=== PATIENT | male | born 1945 | race African-American/Black ===

== ENCOUNTER 2016-12-19 20:48 | Inpatient (IN) | payer OTHER ==
[~2016-12-19] VITALS: Ht 185.4 cm; Wt 83.2 kg
--- NOTE | ~2016-12-19 | PR ---
[place], [place] PROGRESS NOTE NAME: VERONICA GUAJARDO SR [facility] #: [id number] UNIT #: [id number] ROOM: 519 DOCTOR: RALPH WOODRUFF MD BIRTHDATE: [birth year] DOS: 12/21/2016 CARDIOLOGY PROGRESS NOTE SUBJECTIVE: The patient was seen in the [facility] at his bedside today, 12/21/2016. He is a 71-year-old man who presented to the hospital with chest pain and hypertension. He does have a long history of alcohol abuse, but no previous history of coronary disease. He ruled out for an acute myocardial infarction, but his perfusion images did show an area of inferior ischemia. I discussed this finding with the patient, his son and his daughter and the consensus was that we should treat this medically for the time being. His prognosis should be fairly good since this is most likely single vessel disease with preserved left ventricular systolic function. We started him on a beta norma, aspirin, and a statin. This morning, he states that his chest feels good. He denies palpitations and denies chest pain. He does seem anxious and I am concerned that he may be close to alcohol withdrawal. He does have medications ordered for this eventuality. In the long run; however, he would be better off if he could be withdrawn completely from alcohol and remained sober indefinitely. The patient also does smoke and he was advised to stop smoking as well. PHYSICAL EXAMINATION: VITAL SIGNS: Today, his pulse is 60 and regular, blood pressure 154/90. He is afebrile. NECK: Supple. He has no jugular distention. Carotids are full. LUNGS: Respirations are unlabored. Chest is clear to auscultation and percussion. He has no presacral edema. HEART: Has a regular rhythm. He has a fourth heart sound, but no third heart sound or murmur. The PMI is not displaced. ABDOMEN: Soft and normally active. EXTREMITIES: Showed no edema. Peripheral pulses are palpable in the feet. IMPRESSION: 1. Coronary artery disease. Stress test done on 12/21/2016 demonstrated single vessel disease involving the posterior wall. Ejection fraction is preserved. 2. Hypertension. 3. Alcohol abuse. 4. Cigarette abuse. PLAN: No other changes in cardiac management are planned at this time. He could be discharged from our standpoint. I would like to see him back in the office in about 3 or 4 weeks. I thank the hospitalist physicians and Dr. Cm for asking our advice regarding his care. [place], [place] PROGRESS NOTE NAME: BENNETT SUAREZVERONICA Caitie UNIT #: [id number] ROOM: [facility] DOCTOR: RALPH WOODRUFF MD BIRTHDATE: [birth year] RALPH WOODRUFF MD CM:PNTRANS [id number] RALPH WOODRUFF MD 12/22/16 0146 interface
--- NOTE | ~2016-12-19 | EKG ---
[place], [place] ELECTROCARDIOGRAM REPORT NAME: VERONICA GUAJARDO SR UNIT #: [id number] ROOM: [facility] DOCTOR: RALPH WOODRUFF MD BIRTHDATE: [birth year] DOS: 12/19/2016 TIME: 2126 FINDINGS: Sinus bradycardia with rate of 57. Leftward axis. Left ventricular hypertrophy by voltage criteria. Early R-wave progression. Abnormal electrocardiogram. RALPH WOODRUFF MD CM:EKGRPT:ELECTROCARDIOGRAM REPORT [id number] RALPH WOODRUFF MD
--- NOTE | ~2016-12-19 | WRIGHTHP ---
[place], [place] PATIENT HISTORY AND PHYSICAL EXAM NAME: [facility] [id number] UNIT #: [id number] ROOM: [facility] DOCTOR: ANGELA LENZ DO BIRTHDATE: [birth year] DOS: 12/20/2016 PRIMARY CARE PHYSICIAN: Alfred Cm MD The patient was seen and evaluated with the resident on 12/20/2016. Please see the resident's note for further details. ASSESSMENT: 1. Hypertension emergency. 2. Chest pain, rule out myocardial infarction. 3. Vitamin B12 deficiency. 4. Normocytic anemia. 5. Hyperlipidemia. 6. Tobacco abuse in the form of chewing tobacco and occasional cigarettes. 7. Alcohol dependence with a reported consumption of approximately 12-14 beers daily. 8. History of transient ischemic attacks in 09/2006 and 11/2008. 9. Dementia. 10. History of prostate cancer. 11. Gastroesophageal reflux disease. 12. History of known abdominal aortic aneurysm measuring 2.8 cm in 04/2014. 13. Negative cardiac stress test in 07/2013. 14. Last echocardiogram in 07/2013 measured a normal ejection fraction. PLAN: Continue to monitor cardiac enzymes. Continue to monitor the blood pressure closely. Cardiology has been consulted. A stress test has been ordered for today. B12 injections will be started today. ANGELA LENZ DO CM:HISPHYS:PATIENT HISTORY AND PHYSICAL EXAMINATION [id number] ANGELA LENZ DO 12/20/16 1000 interface
--- NOTE | ~2016-12-19 | ST ---
[place], [place] EXERCISE STRESS TEST REPORT [id number] UNIT #: [id number] ROOM: 519 DOCTOR: RALPH WOODRUFF MD BIRTHDATE: [birth year] DOS: 12/20/2016 EXERCISE STRESS NUCLEAR STUDY INDICATIONS: Hypertension and atypical chest pain. PROCEDURE: The patient walked on a full Lg protocol stress test for 4 minutes 30 seconds and stopped for leg fatigue. He did not reproduce his presenting chest pain. He achieved a maximum heart rate of 148 which represented 98% of his maximum predicted heart rate at a workload of 7 mets. His resting heart rate of 51 tab to 148. The resting blood pressure of 110/72 tab to 162/78. The resting electrocardiogram was unremarkable. He did not have any diagnostic ST or T-wave changes with exercise. One minute prior to completion of the exercise protocol, he was given radionuclide intravenously. IMPRESSION: 1. Adequate exercise capacity without chest pain or diagnostic electrocardiographic changes. 2. Radionuclide injected. Please see the separately dictated imaging report for further details of the patient's stress test results. RALPH WOODRUFF MD CM:STRESS:EXERCISE STRESS TEST REPORT [id number] RALPH WOODRUFF MD
[~2016-12-19 20:48] MED LIST: AMLODIPINE BESYL5 MG; AMLODIPINE BESYL5 MG PO; ANTI-HYPERTENSIVE; ATIVAN0.5 MG PO; ATIVAN1 MG PO; B12,B-12,B 12500 MC1 PO; BACTRIM DS 8001 TA1 PO; CILOXAN 5 ML5 ML IA; CILOXAN 5 ML5 ML OT; DAYPRO600 M1 PO; EXELON4.6 MG/24 T; IBU800 M1 PO; IBUPROFEN800 MG; KEFLEX500 MG PO; LEVAQUIN750 M1 PO; LISINOPRIL/HCTZ1 TA3 PO; LISINOPRIL20 MG PO; MELOXICAM15 MG; METAMUCIL1 PDR; MOTRIN800 MG PO; OXYCODONE/APAP1 TA5 PO; PREVACID SOLUTA30 MG PO; PRILOSEC20 MG PO; PROTONIX40 MG PO; SIMVASTATIN40 MG; ULTRAM50 MG PO; VICODIN 500 MG-1 TAB PO; VITAMIN B150 MG; ZESTRIL,PRINIVIL5 MG PO
[2016-12-19 21:01] VITALS: BP 190/97
[2016-12-19] MEDS ORDERED: LISINOPRIL AND1 TAB PO (21:01)
[2016-12-19 21:21] VITALS: BP 182/92
[2016-12-19 21:29] LABS: BASO % 0.7 % (0.0-1.0); EOS # 0.2 10*3/uL (0.0-0.4); EOS % 2.6 % (1.0-4.0); HEMATOCRIT 39.4 % (42.0-52.0); HEMOGLOBIN 13.6 g/dl (14.0-18.0); LYMPH # 2.4 10*3/uL (1.3-4.4); LYMPH % 41.7 % (27.0-41.0); MEAN CELL VOLUME 89.1 fl (80.0-94.0); MEAN CORPUSCULAR HGB 30.8 pg (27.0-31.0); MEAN CORPUSCULAR HGB CONC 34.5 g/dl (33.0-37.0); MEAN PLATELET VOLUME 8.5 fl (9.6-12.3); MONO # 0.6 10*3/uL (0.1-1.0); MONO % 10.6 % (3.0-9.0); NEUT # 2.5 10*3/uL (2.3-7.9); NEUT % 44.1 % (47.0-73.0); PLATELET COUNT AUTOMATED 213 10*3/uL (130-400); RED BLOOD COUNT 4.42 10*6/uL (4.50-5.90); RED CELL DISTRI WIDTH 14.7 % (0-14.5); WHITE BLOOD COUNT 5.8 10*3/uL (4.8-10.8)
[2016-12-19 21:48] LABS: BUN 13 mg/dl (7-24); CARBON DIOXIDE 26 mmol/L (21-32); CHLORIDE 106 mmol/L (98-107); EST GLOM FILT AFRICAN AMERICAN > 60 ml/min; GLUCOSE 78 mg/dL (65-99); POTASSIUM 3.8 mmol/L (3.5-5.1); SODIUM 138 mmol/L (136-145)
[2016-12-19 21:50] LABS: TROPONIN I < 0.015 ng/ml (<0.045)
[2016-12-19 22:00] VITALS: BP 154/86
[2016-12-19 22:04] LABS: BILIRUBIN NEGATIVE (NEGATIVE); BLOOD NEGATIVE (NEGATIVE); CLARITY CLEAR (CLEAR); COLOR YELLOW (YELLOW); GLUCOSE NEGATIVE (NEGATIVE); KETONE NEGATIVE (NEGATIVE); LEUKO ESTERASE NEGATIVE (NEGATIVE); NITRITE NEGATIVE (NEGATIVE); PROTEIN NEGATIVE (NEGATIVE); UROBILINOGEN 0.2 E.U./dl (0.2-1.0)
[2016-12-19 22:10] LABS: URINE REFLEX COMMENT NO (NO); WBC 0-2 wbc/hpf (0-5)
[2016-12-19 23:00] VITALS: BP 124/72
[2016-12-19 23:36] VITALS: BP 124/72
[2016-12-20] VITALS (7 sets, daily range): BP systolic 110–136; BP diastolic 68–78
[2016-12-20 06:30] LABS: BASO % 0.8 % (0.0-1.0); EOS # 0.1 10*3/uL (0.0-0.4); EOS % 3.3 % (1.0-4.0); HEMATOCRIT 37.3 % (42.0-52.0); HEMOGLOBIN 12.9 g/dl (14.0-18.0); LYMPH # 1.4 10*3/uL (1.3-4.4); LYMPH % 38.9 % (27.0-41.0); MEAN CELL VOLUME 89.4 fl (80.0-94.0); MEAN CORPUSCULAR HGB 30.9 pg (27.0-31.0); MEAN CORPUSCULAR HGB CONC 34.6 g/dl (33.0-37.0); MEAN PLATELET VOLUME 8.4 fl (9.6-12.3); MONO # 0.4 10*3/uL (0.1-1.0); NEUT # 1.7 10*3/uL (2.3-7.9); NEUT % 44.7 % (47.0-73.0); PLATELET COUNT AUTOMATED 192 10*3/uL (130-400); RED BLOOD COUNT 4.17 10*6/uL (4.50-5.90); RED CELL DISTRI WIDTH 14.7 % (0-14.5); WHITE BLOOD COUNT 3.7 10*3/uL (4.8-10.8)
[2016-12-20 06:40] LABS: CKMB 3.9 ng/ml (0.5-3.6); CPK 278 U/L (39-308)
[2016-12-20 06:41] LABS: TROPONIN I < 0.015 ng/ml (<0.045)
[2016-12-20 06:59] LABS: HEMOGLOBIN A1c 5.3 % (4.8-5.6)
[2016-12-20 07:02] LABS: PROTHROMBIN TIME 10.2 SECONDS (9.0-12.4)
[2016-12-20 07:08] LABS: ALBUMIN 3.3 gm/dl (3.1-4.5); BILIRUBIN, TOTAL 0.5 mg/dl (0.2-1.0); BUN 14 mg/dl (7-24); CARBON DIOXIDE 28 mmol/L (21-32); CHLORIDE 109 mmol/L (98-107); CHOLESTEROL 218 mg/dL (<200); EST GLOM FILT AFRICAN AMERICAN > 60 ml/min; GLUCOSE 70 mg/dL (65-99); MAGNESIUM 2.1 mg/dL (1.5-2.1); POTASSIUM 3.6 mmol/L (3.5-5.1); SGOT/AST 8 IU/L (3-35); SGPT/ALT 31 U/L (12-78); SODIUM 130 mmol/L (136-145); TOTAL PROTEIN 6.4 gm/dL (6.4-8.2)
[2016-12-20 07:15] LABS: ALKALINE PHOSPHATASE 63 U/L (45-117); FREE T4 0.82 ng/dl (0.76-1.46)
[2016-12-20 08:05] LABS: HDL CHOLESTEROL 173 mg/dl (40-60); LDL CHOLESTEROL 37 mg/dL (9-159); TRIGLYCERIDES 40 mg/dl (<150); VLDL CHOLESTEROL 8 mg/dL (6-40)
[2016-12-20 08:39] LABS: FOLIC ACID 18.01 ng/mL (>5.38); VITAMIN D, 25-HYDROXY 7.2 ng/mL (30-100)
[2016-12-20 13:58] LABS: CPK 296 U/L (39-308)
[2016-12-20 14:04] LABS: TROPONIN I < 0.015 ng/ml (<0.045)
[2016-12-20 18:29] LABS: CPK 311 U/L (39-308)
[2016-12-20 18:30] LABS: CKMB 4.1 ng/ml (0.5-3.6)
[2016-12-20 18:31] LABS: TROPONIN I < 0.015 ng/ml (<0.045)
[2016-12-21 00:20] VITALS: BP 129/76
[2016-12-21 07:14] LABS: BASO % 0.9 % (0.0-1.0); EOS # 0.1 10*3/uL (0.0-0.4); EOS % 2.2 % (1.0-4.0); HEMATOCRIT 40.6 % (42.0-52.0); HEMOGLOBIN 13.9 g/dl (14.0-18.0); LYMPH # 1.9 10*3/uL (1.3-4.4); LYMPH % 41.6 % (27.0-41.0); MEAN CELL VOLUME 89.2 fl (80.0-94.0); MEAN CORPUSCULAR HGB 30.5 pg (27.0-31.0); MEAN CORPUSCULAR HGB CONC 34.2 g/dl (33.0-37.0); MONO # 0.6 10*3/uL (0.1-1.0); MONO % 12.4 % (3.0-9.0); NEUT % 42.7 % (47.0-73.0); PLATELET COUNT AUTOMATED 217 10*3/uL (130-400); RED BLOOD COUNT 4.55 10*6/uL (4.50-5.90); RED CELL DISTRI WIDTH 14.7 % (0-14.5); WHITE BLOOD COUNT 4.6 10*3/uL (4.8-10.8)
[2016-12-21 07:32] LABS: CHLORIDE 102 mmol/L (98-107); GLUCOSE 90 mg/dL (65-99); POTASSIUM 3.9 mmol/L (3.5-5.1); SODIUM 141 mmol/L (136-145)
[2016-12-21 07:38] LABS: BUN 19 mg/dl (7-24); CARBON DIOXIDE 29 mmol/L (21-32); EST GLOM FILT AFRICAN AMERICAN > 60 ml/min
[2016-12-21 08:08] VITALS: BP 154/90
[2016-12-21] MEDS ORDERED: METOPROLOL SUCC25 M2 PO (11:08)
[2016-12-21] MEDS ORDERED: ASPIRIN ADULT L81 M2 PO (11:08)
[2016-12-21] MEDS ORDERED: HYDR12.5C PO (11:08)
[2016-12-21] MEDS ORDERED: B-12500 MC1 PO (11:08)
[2016-12-21] MEDS ORDERED: ATORVASTATIN CA80 M1 PO (11:08)
[2016-12-21] MEDS ORDERED: VITAMIN D50000 I3 PO (11:08)
[2016-12-21] MEDS ORDERED: VITAMIN B-11 TAB PO (11:08)
[2016-12-21 12:00] VITALS: BP 156/80
== END 2016-12-21 13:14 | disposition home or self-care (01) | DRG 305 ==
LOC: ED 20:48 → EDHOLD 22:29 → 5E 22:29
PROVIDERS: Family Medicine; Hospitalist; Internal Medicine; Physician Assistant
DX: I16.1 Hypertensive emergency (principal); F03.90 Unspecified dementia, unspecified severity, without behavioral disturbance, psychotic disturbance, mood disturbance, and anxiety; I25.10 Atherosclerotic heart disease of native coronary artery without angina pectoris; E53.8 Deficiency of other specified B group vitamins; D64.9 Anemia, unspecified; E78.5 Hyperlipidemia, unspecified; F17.210 Nicotine dependence, cigarettes, uncomplicated; F10.20 Alcohol dependence, uncomplicated; Z86.73 Personal history of transient ischemic attack (TIA), and cerebral infarction without residual deficits; Z85.46 Personal history of malignant neoplasm of prostate; K21.9 Gastro-esophageal reflux disease without esophagitis; R07.89 Other chest pain

== ENCOUNTER 2017-10-13 23:02 | Emergency (ER) | payer OTHER ==
[~2017-10-13] VITALS: Ht 177.8 cm; Wt 77.1 kg
[~2017-10-13 23:02] MED LIST changes: +ASPIRIN ADULT L81 M2 PO; +ATORVASTATIN CA80 M1 PO; +B-12500 MC1 PO; +HYDR12.5C PO; +LISINOPRIL AND1 TAB PO; +METOPROLOL SUCC25 M2 PO; +VITAMIN B-11 TAB PO; +VITAMIN D50000 I3 PO
[2017-10-14] MEDS ORDERED: ZITHROMAX250 MG PO (00:47)
[2017-10-14] MEDS ORDERED: ROBITUSSIN DM 101 OZ PO (00:47)
== END 2017-10-14 01:15 | disposition home or self-care (01) ==
LOC: ED 23:02
DX: J20.9 Acute bronchitis, unspecified (principal); I10 Essential (primary) hypertension; F17.200 Nicotine dependence, unspecified, uncomplicated; F10.10 Alcohol abuse, uncomplicated; F03.90 Unspecified dementia, unspecified severity, without behavioral disturbance, psychotic disturbance, mood disturbance, and anxiety; Z79.899 Other long term (current) drug therapy; Z85.46 Personal history of malignant neoplasm of prostate; Z90.49 Acquired absence of other specified parts of digestive tract; Z86.73 Personal history of transient ischemic attack (TIA), and cerebral infarction without residual deficits

== ENCOUNTER 2019-04-11 16:53 | Emergency (ER) | payer OTHER ==
[~2019-04-11] VITALS: Ht 175.2 cm; Wt 97.5 kg
[~2019-04-11 16:53] MED LIST changes: +ROBITUSSIN DM 101 OZ PO; +ZITHROMAX250 MG PO
[2019-04-11 17:41] LABS: BASO % 0.5 % (0.0-1.0); EOS # 0.1 10*3/uL (0.0-0.4); EOS % 3.2 % (1.0-4.0); HEMATOCRIT 36.3 % (42.0-52.0); HEMOGLOBIN 12.7 g/dl (14.0-18.0); LYMPH # 1.3 10*3/uL (1.3-4.4); LYMPH % 30.8 % (27.0-41.0); MEAN CELL VOLUME 87.7 fl (80.0-94.0); MEAN CORPUSCULAR HGB 30.7 pg (27.0-31.0); MEAN PLATELET VOLUME 8.8 fl (9.6-12.3); MONO # 0.4 10*3/uL (0.1-1.0); MONO % 9.9 % (3.0-9.0); NEUT # 2.3 10*3/uL (2.3-7.9); NEUT % 55.4 % (47.0-73.0); PLATELET COUNT AUTOMATED 214 10*3/uL (130-400); RED BLOOD COUNT 4.14 10*6/uL (4.50-5.90); RED CELL DISTRI WIDTH 14.2 % (0-14.5); WHITE BLOOD COUNT 4.1 10*3/uL (4.8-10.8)
[2019-04-11 17:55] LABS: ALBUMIN 3.7 gm/dl (3.1-4.5); ALKALINE PHOSPHATASE 94 U/L (45-117); BUN 20 mg/dl (7-24); CHLORIDE 95 mmol/L (98-107); CREATININE 1.03 mg/dL (0.70-1.30); LIPASE 69 U/L (73-393); POTASSIUM 3.2 mmol/L (3.5-5.1); SGOT/AST 22 IU/L (3-35); SGPT/ALT 32 U/L (12-78); SODIUM 130 mmol/L (136-145); TOTAL PROTEIN 7.3 gm/dL (6.4-8.2)
== END 2019-04-11 19:35 | disposition home or self-care (01) ==
LOC: ED 16:53
PROVIDERS: Nurse Practitioner Family
DX: A08.4 Viral intestinal infection, unspecified (principal); I10 Essential (primary) hypertension; G89.29 Other chronic pain; F17.200 Nicotine dependence, unspecified, uncomplicated; Z79.2 Long term (current) use of antibiotics; Z79.82 Long term (current) use of aspirin; Z79.899 Other long term (current) drug therapy; Z90.49 Acquired absence of other specified parts of digestive tract

== ENCOUNTER → 2019-10-28 | Outpatient (CLI) | payer OTHER ==
[2019-10-28 08:17] LABS: BASO % 0.7 % (0.0-1.0); EOS # 0.2 10*3/uL (0.0-0.4); EOS % 4.7 % (1.0-4.0); HEMATOCRIT 40.2 % (42.0-52.0); HEMOGLOBIN 13.5 g/dl (14.0-18.0); LYMPH # 1.9 10*3/uL (1.3-4.4); LYMPH % 42.6 % (27.0-41.0); MEAN CELL VOLUME 91.6 fl (80.0-94.0); MEAN CORPUSCULAR HGB 30.8 pg (27.0-31.0); MEAN CORPUSCULAR HGB CONC 33.6 g/dl (33.0-37.0); MONO # 0.5 10*3/uL (0.1-1.0); MONO % 10.4 % (3.0-9.0); NEUT # 1.9 10*3/uL (2.3-7.9); NEUT % 41.4 % (47.0-73.0); PLATELET COUNT AUTOMATED 225 10*3/uL (130-400); RED BLOOD COUNT 4.39 10*6/uL (4.50-5.90); RED CELL DISTRI WIDTH 14.2 % (0-14.5); WHITE BLOOD COUNT 4.5 10*3/uL (4.8-10.8)
[2019-10-28 08:47] LABS: ALBUMIN 3.7 gm/dl (3.1-4.5); ALKALINE PHOSPHATASE 116 U/L (45-117); BUN 16 mg/dl (7-24); CHLORIDE 105 mmol/L (98-107); CHOLESTEROL 142 mg/dL (<200); CREATININE 1.04 mg/dL (0.70-1.30); HDL CHOLESTEROL 82 mg/dl (40-60); LDL CHOLESTEROL 51 mg/dL (9-159); POTASSIUM 3.5 mmol/L (3.5-5.1); SGOT/AST 22 IU/L (3-35); SGPT/ALT 38 U/L (12-78); SODIUM 140 mmol/L (136-145); TOTAL PROTEIN 7.6 gm/dL (6.4-8.2); TRIGLYCERIDES 45 mg/dl (<150); VLDL CHOLESTEROL 9 mg/dL (6-40)
== END | disposition home or self-care (01) ==
LOC: LAB 07:46
PROVIDERS: Family Medicine
DX: I10 Essential (primary) hypertension (principal); E78.2 Mixed hyperlipidemia; R73.03 Prediabetes; Z79.899 Other long term (current) drug therapy

== ENCOUNTER 2019-12-03 21:37 | Emergency (ER) | payer OTHER ==
[2019-12-03 22:42] LABS: BASO % 0.5 % (0.0-1.0); EOS # 0.1 10*3/uL (0.0-0.4); EOS % 0.9 % (1.0-4.0); HEMATOCRIT 36.6 % (42.0-52.0); HEMOGLOBIN 12.6 g/dl (14.0-18.0); LYMPH # 1.4 10*3/uL (1.3-4.4); LYMPH % 17.8 % (27.0-41.0); MEAN CELL VOLUME 89.1 fl (80.0-94.0); MEAN CORPUSCULAR HGB 30.7 pg (27.0-31.0); MEAN CORPUSCULAR HGB CONC 34.4 g/dl (33.0-37.0); MEAN PLATELET VOLUME 8.8 fl (9.6-12.3); MONO # 0.8 10*3/uL (0.1-1.0); MONO % 10.3 % (3.0-9.0); NEUT # 5.7 10*3/uL (2.3-7.9); NEUT % 70.3 % (47.0-73.0); PLATELET COUNT AUTOMATED 210 10*3/uL (130-400); RED BLOOD COUNT 4.11 10*6/uL (4.50-5.90); RED CELL DISTRI WIDTH 14.3 % (0-14.5); WHITE BLOOD COUNT 8.1 10*3/uL (4.8-10.8)
[2019-12-03 22:57] LABS: ALBUMIN 3.5 gm/dl (3.1-4.5); ALKALINE PHOSPHATASE 82 U/L (45-117); BUN 12 mg/dl (7-24); CHLORIDE 105 mmol/L (98-107); CREATININE 0.98 mg/dL (0.70-1.30); POTASSIUM 3.4 mmol/L (3.5-5.1); SGOT/AST 20 IU/L (3-35); SGPT/ALT 21 U/L (12-78); SODIUM 135 mmol/L (136-145); TOTAL PROTEIN 6.9 gm/dL (6.4-8.2)
[2019-12-03] MEDS ORDERED: AUGMENTIN 875875 MG PO (23:45)
== END 2019-12-04 00:37 | disposition home or self-care (01) ==
LOC: ED 21:37
PROVIDERS: Physician Assistant
DX: J32.9 Chronic sinusitis, unspecified (principal); I10 Essential (primary) hypertension; F17.200 Nicotine dependence, unspecified, uncomplicated; Z79.899 Other long term (current) drug therapy; Z90.49 Acquired absence of other specified parts of digestive tract

== ENCOUNTER → 2020-05-11 | Outpatient (CLI) | payer OTHER ==
[~2020-05-11] MED LIST changes: +AUGMENTIN 875875 MG PO
[2020-05-11 13:29] LABS: BILIRUBIN NEGATIVE; CLARITY CLEAR (CLEAR); COLOR YELLOW (YELLOW); GLUCOSE NEGATIVE; KETONE NEGATIVE
[2020-05-11 13:30] LABS: BACTERIA 1+; BLOOD NEGATIVE (NEGATIVE); LEUKO ESTERASE NEGATIVE (NEGATIVE); NITRITE NEGATIVE (NEGATIVE); RBC 0-2 rbc/hpf (0-2); SPECIFIC GRAVITY 1.025 (1.001-1.030)
[2020-05-11 13:31] LABS: MUCOUS 2+
== END | disposition home or self-care (01) ==
LOC: LAB 11:50
PROVIDERS: ATTEND Family Medicine
DX: N40.0 Benign prostatic hyperplasia without lower urinary tract symptoms (principal)

== ENCOUNTER 2020-09-27 13:55 | Emergency (ER) | payer OTHER ==
[~2020-09-27] VITALS: Ht 177.8 cm; Wt 90.3 kg
[2020-09-27 15:46] LABS: BASO % 0.5 % (0.0-1.0); EOS # 0.1 10*3/uL (0.0-0.4); EOS % 2.8 % (1.0-4.0); LYMPH # 1.2 10*3/uL (1.3-4.4); LYMPH % 31.6 % (27.0-41.0); MEAN CELL VOLUME 89.6 fl (80.0-94.0); MEAN CORPUSCULAR HGB 29.9 pg (27.0-31.0); MEAN CORPUSCULAR HGB CONC 33.3 g/dl (33.0-37.0); MEAN PLATELET VOLUME 8.5 fl (9.6-12.3); MONO # 0.5 10*3/uL (0.1-1.0); MONO % 12.8 % (3.0-9.0); PLATELET COUNT AUTOMATED 201 10*3/uL (130-400); RED BLOOD COUNT 4.02 10*6/uL (4.50-5.90); RED CELL DISTRI WIDTH 14.6 % (0-14.5); WHITE BLOOD COUNT 3.9 10*3/uL (4.8-10.8)
[2020-09-27 15:58] LABS: ACT PARTIAL THROMBO TIME 25.5 SECONDS (20.0-32.1)
[2020-09-27 16:07] LABS: ALBUMIN 3.4 gm/dl (3.1-4.5); ALKALINE PHOSPHATASE 90 U/L (45-117); BUN 14 mg/dl (7-24); CHLORIDE 108 mmol/L (98-107); LIPASE 50 U/L (73-393); POTASSIUM 3.3 mmol/L (3.5-5.1); SGOT/AST 15 IU/L (3-35); SGPT/ALT 27 U/L (12-78); SODIUM 140 mmol/L (136-145); TOTAL PROTEIN 6.9 gm/dL (6.4-8.2)
[2020-09-27 16:28] LABS: TROPONIN I < 0.015 ng/ml (<0.045)
[2020-09-27 17:56] LABS: BILIRUBIN Negative (Negative); BLOOD Negative (Negative); CLARITY Clear (Clear); COLOR Yellow (Yellow); GLUCOSE Negative (Negative); KETONE Negative (Negative); LEUKO ESTERASE Negative (Negative); NITRITE Negative (Negative); PH 6.5 (4.5-8.0); SPECIFIC GRAVITY 1.015 (1.001-1.030)
[2020-09-27 18:15] LABS: BACTERIA TRACE; RBC 0-2 rbc/hpf (0-2); WBC 0-2 wbc/hpf (0-5)
[2020-09-27 18:16] LABS: MUCOUS 1+
== END 2020-09-27 19:02 | disposition home or self-care (01) ==
LOC: ED 13:55
PROVIDERS: Emergency Medicine
DX: R07.81 Pleurodynia (principal); F03.90 Unspecified dementia, unspecified severity, without behavioral disturbance, psychotic disturbance, mood disturbance, and anxiety; I10 Essential (primary) hypertension; Z79.2 Long term (current) use of antibiotics; Z79.899 Other long term (current) drug therapy; Z90.49 Acquired absence of other specified parts of digestive tract; Z98.890 Other specified postprocedural states; Z87.891 Personal history of nicotine dependence; Z86.73 Personal history of transient ischemic attack (TIA), and cerebral infarction without residual deficits; W19.XXXA Unspecified fall, initial encounter; Y93.89 Activity, other specified; Y92.89 Other specified places as the place of occurrence of the external cause; Y99.8 Other external cause status

== ENCOUNTER → 2020-12-13 | Outpatient (CLI) | payer MEDICARE ==
[2020-12-13 11:14] LABS: BILIRUBIN Negative (Negative); BLOOD Negative (Negative); CLARITY Clear (Clear); COLOR Dark Yellow (Yellow); GLUCOSE Negative (Negative); KETONE Trace (Negative); LEUKO ESTERASE Negative (Negative); NITRITE Negative (Negative); PH 5.5 (4.5-8.0); SPECIFIC GRAVITY 1.025 (1.001-1.030)
[2020-12-13 11:25] LABS: HYALINE CAST 0-2; MUCOUS 1+; RBC 0-2 rbc/hpf (0-2)
[2020-12-13 11:33] LABS: BASO % 0.7 % (0.0-1.0); EOS # 0.2 10*3/uL (0.0-0.4); EOS % 3.8 % (1.0-4.0); HEMATOCRIT 39.9 % (42.0-52.0); LYMPH # 1.8 10*3/uL (1.3-4.4); LYMPH % 42.1 % (27.0-41.0); MEAN CELL VOLUME 91.3 fl (80.0-94.0); MEAN CORPUSCULAR HGB 30.9 pg (27.0-31.0); MEAN CORPUSCULAR HGB CONC 33.8 g/dl (33.0-37.0); MEAN PLATELET VOLUME 9.1 fl (9.6-12.3); MONO # 0.4 10*3/uL (0.1-1.0); MONO % 10.4 % (3.0-9.0); NEUT # 1.8 10*3/uL (2.3-7.9); NEUT % 42.8 % (47.0-73.0); PLATELET COUNT AUTOMATED 232 10*3/uL (130-400); RED BLOOD COUNT 4.37 10*6/uL (4.50-5.90); RED CELL DISTRI WIDTH 13.5 % (0-14.5); WHITE BLOOD COUNT 4.2 10*3/uL (4.8-10.8)
[2020-12-13 12:09] LABS: ALBUMIN 3.7 gm/dl (3.1-4.5); ALKALINE PHOSPHATASE 83 U/L (45-117); BUN 14 mg/dl (7-24); CHLORIDE 105 mmol/L (98-107); CREATININE 1.14 mg/dL (0.70-1.30); POTASSIUM 3.3 mmol/L (3.5-5.1); SGOT/AST 26 IU/L (3-35); SGPT/ALT 27 U/L (12-78); SODIUM 139 mmol/L (136-145); TOTAL PROTEIN 7.2 gm/dL (6.4-8.2)
== END | disposition home or self-care (01) ==
LOC: LAB 10:43
PROVIDERS: ATTEND Orthopaedic Surgery
DX: Z01.818 Encounter for other preprocedural examination (principal); J44.9 Chronic obstructive pulmonary disease, unspecified; I44.4 Left anterior fascicular block; M19.90 Unspecified osteoarthritis, unspecified site; I10 Essential (primary) hypertension; E78.00 Pure hypercholesterolemia, unspecified; R53.83 Other fatigue; R35.0 Frequency of micturition; Z79.01 Long term (current) use of anticoagulants; Z85.9 Personal history of malignant neoplasm, unspecified; Z79.899 Other long term (current) drug therapy

== ENCOUNTER → 2021-04-22 | Outpatient (CLI) | payer MEDICARE | END | disposition home or self-care (01) | LOC: RAD 11:45 | PROVIDERS: ATTEND Orthopaedic Surgery | DX: M25.462 Effusion, left knee (principal); M17.12 Unilateral primary osteoarthritis, left knee; I70.90 Unspecified atherosclerosis ==

== ENCOUNTER 2021-11-29 11:02 | Observation (INO) | payer MEDICARE ==
[~2021-11-29] VITALS: Ht 175.2 cm; Wt 88.6 kg
[2021-11-29 11:10] VITALS: BP 99/57
[2021-11-29] MEDS ORDERED: AMLODIPINE BESY10 MG PO (11:21)
[2021-11-29] MEDS ORDERED: LOSARTAN-HCTZ1 EAC1 PO (11:22)
[2021-11-29] MEDS ORDERED: BICALUTAMIDE50 MG PO (11:22)
[2021-11-29] MEDS ORDERED: QUETIAPINE FUMA25 M1 PO (11:23)
[2021-11-29] MEDS ORDERED: POTASSIUM CHLO10 MEQ PO (11:23)
[2021-11-29] MEDS ORDERED: TRAZODONE100 MG PO (11:23)
[2021-11-29] MEDS ORDERED: LUPRON DEPOT22.5 MG IM (11:24)
[2021-11-29 11:50] LABS: BASO % 0.2 % (0.0-1.0); EOS % 0.3 % (1.0-4.0); HEMATOCRIT 38.4 % (42.0-52.0); LYMPH # 1.5 10*3/uL (1.3-4.4); MEAN CELL VOLUME 86.1 fl (80.0-94.0); MEAN CORPUSCULAR HGB CONC 34.9 g/dl (33.0-37.0); MEAN PLATELET VOLUME 8.7 fl (9.6-12.3); MONO # 0.7 10*3/uL (0.1-1.0); MONO % 6.8 % (3.0-9.0); NEUT # 7.6 10*3/uL (2.3-7.9); NEUT % 77.2 % (47.0-73.0); PLATELET COUNT AUTOMATED 212 10*3/uL (130-400); RED BLOOD COUNT 4.46 10*6/uL (4.50-5.90); RED CELL DISTRI WIDTH 13.9 % (0-14.5); WHITE BLOOD COUNT 9.8 10*3/uL (4.8-10.8)
[2021-11-29 12:04] LABS: ALKALINE PHOSPHATASE 88 U/L (45-117); BUN 15 mg/dl (7-24); CHLORIDE 105 mmol/L (98-107); CREATININE 1.26 mg/dL (0.70-1.30); POTASSIUM 3.5 mmol/L (3.5-5.1); SGOT/AST 26 IU/L (3-35); SGPT/ALT 28 U/L (12-78); SODIUM 137 mmol/L (136-145); TOTAL PROTEIN 7.5 gm/dL (6.4-8.2)
[2021-11-29 12:40] LABS: BILIRUBIN Negative (Negative); BLOOD Negative (Negative); CLARITY Clear (Clear); COLOR Yellow (Yellow); GLUCOSE Negative (Negative); KETONE Trace (Negative); LEUKO ESTERASE Negative (Negative); NITRITE Negative (Negative); PH 7.5 (4.5-8.0)
[2021-11-29 13:19] LABS: WBC 0-2 wbc/hpf (0-5)
[2021-11-29 13:20] LABS: MUCOUS 2+
[2021-11-29 14:06] VITALS: BP 120/61
[2021-11-29 16:00] VITALS: BP 111/60
[2021-11-29 20:00] VITALS: BP 130/55
[2021-11-30] VITALS: BP 121/81
[2021-11-30 06:13] LABS: ALKALINE PHOSPHATASE 71 U/L (45-117); BUN 13 mg/dl (7-24); CHLORIDE 107 mmol/L (98-107); CHOLESTEROL 100 mg/dL (<200); CREATININE 0.94 mg/dL (0.70-1.30); POTASSIUM 3.2 mmol/L (3.5-5.1); SGOT/AST 16 IU/L (3-35); SGPT/ALT 22 U/L (12-78); SODIUM 138 mmol/L (136-145); TOTAL PROTEIN 6.2 gm/dL (6.4-8.2); TRIGLYCERIDES 30 mg/dl (<150)
[2021-11-30 06:18] LABS: FREE T4 1.18 ng/dl (0.76-1.46); LDL CHOLESTEROL 33 mg/dL (9-159); THYROID STIM HORMONE (HS) 0.383 uIU/ml (0.358-4.75)
[2021-11-30 06:32] LABS: BASO % 0.2 % (0.0-1.0); EOS # 0.1 10*3/uL (0.0-0.4); EOS % 0.7 % (1.0-4.0); HEMATOCRIT 32.6 % (42.0-52.0); LYMPH # 2.2 10*3/uL (1.3-4.4); LYMPH % 26.7 % (27.0-41.0); MEAN CELL VOLUME 85.6 fl (80.0-94.0); MEAN CORPUSCULAR HGB 30.2 pg (27.0-31.0); MEAN CORPUSCULAR HGB CONC 35.3 g/dl (33.0-37.0); MEAN PLATELET VOLUME 8.9 fl (9.6-12.3); MONO # 0.8 10*3/uL (0.1-1.0); MONO % 10.1 % (3.0-9.0); NEUT % 62.1 % (47.0-73.0); PLATELET COUNT AUTOMATED 177 10*3/uL (130-400); RED BLOOD COUNT 3.81 10*6/uL (4.50-5.90); RED CELL DISTRI WIDTH 13.6 % (0-14.5); WHITE BLOOD COUNT 8.1 10*3/uL (4.8-10.8)
[2021-11-30 08:00] VITALS: BP 115/55
[2021-11-30] MEDS ORDERED: VITAMIN D31250 MCG PO (10:57)
[2021-11-30] MEDS ORDERED: VITAMIN D350 MC2 PO (10:57)
[2021-11-30 12:00] VITALS: BP 99/52
== END 2021-11-30 12:30 | disposition home or self-care (01) ==
LOC: ED 11:02 → EDHOLD 14:28 → 5E 14:28
PROVIDERS: Physician Assistant; Registered Nurse; ADMIT Internal Medicine; ATTEND Internal Medicine
DX: R53.1 Weakness (principal); I95.9 Hypotension, unspecified; F03.90 Unspecified dementia, unspecified severity, without behavioral disturbance, psychotic disturbance, mood disturbance, and anxiety; R47.01 Aphasia; I10 Essential (primary) hypertension; E44.0 Moderate protein-calorie malnutrition; C61 Malignant neoplasm of prostate; F17.210 Nicotine dependence, cigarettes, uncomplicated; Z86.73 Personal history of transient ischemic attack (TIA), and cerebral infarction without residual deficits; Z79.899 Other long term (current) drug therapy

== ENCOUNTER → 2022-01-11 | Outpatient (CLI) | payer MEDICARE ==
[~2022-01-11] MED LIST changes: +AMLODIPINE BESY10 MG PO; +BICALUTAMIDE50 MG PO; +LOSARTAN-HCTZ1 EAC1 PO; +LUPRON DEPOT22.5 MG IM; +POTASSIUM CHLO10 MEQ PO; +QUETIAPINE FUMA25 M1 PO; +TRAZODONE100 MG PO; +VITAMIN D31250 MCG PO; +VITAMIN D350 MC2 PO
== END | disposition home or self-care (01) ==
LOC: RESCLI 10:26
PROVIDERS: ATTEND Student in an Organized Health Care Education/Training Program
DX: I10 Essential (primary) hypertension (principal); K21.9 Gastro-esophageal reflux disease without esophagitis; K59.09 Other constipation; M25.562 Pain in left knee; E78.5 Hyperlipidemia, unspecified; G30.9 Alzheimer's disease, unspecified; E87.6 Hypokalemia; E55.9 Vitamin D deficiency, unspecified; F03.91 Unspecified dementia, unspecified severity, with behavioral disturbance; Z79.899 Other long term (current) drug therapy; Z79.82 Long term (current) use of aspirin; Z85.46 Personal history of malignant neoplasm of prostate

== ENCOUNTER 2022-04-13 19:02 | Emergency (ER) | payer MEDICARE ==
[~2022-04-13] VITALS: Ht 6035 cm
== END 2022-04-13 22:34 | disposition home or self-care (01) ==
LOC: ED 19:02
DX: S63.501A Unspecified sprain of right wrist, initial encounter (principal); F17.210 Nicotine dependence, cigarettes, uncomplicated; Z79.899 Other long term (current) drug therapy; Z90.49 Acquired absence of other specified parts of digestive tract; Z98.890 Other specified postprocedural states; W18.39XA Other fall on same level, initial encounter; Y93.89 Activity, other specified; Y92.89 Other specified places as the place of occurrence of the external cause; Y99.8 Other external cause status

== ENCOUNTER → 2022-08-04 | Outpatient (CLI) | payer MEDICARE ==
[2022-08-04 11:48] LABS: BASO % 0.6 % (0.0-1.0); EOS # 0.1 10*3/uL (0.0-0.4); EOS % 2.2 % (1.0-4.0); HEMATOCRIT 39.3 % (42.0-52.0); LYMPH # 2.2 10*3/uL (1.3-4.4); LYMPH % 34.3 % (27.0-41.0); MEAN CELL VOLUME 90.3 fl (80.0-94.0); MEAN CORPUSCULAR HGB 30.8 pg (27.0-31.0); MEAN CORPUSCULAR HGB CONC 34.1 g/dl (33.0-37.0); MONO # 0.7 10*3/uL (0.1-1.0); MONO % 11.3 % (3.0-9.0); NEUT # 3.3 10*3/uL (2.3-7.9); NEUT % 51.4 % (47.0-73.0); PLATELET COUNT AUTOMATED 202 10*3/uL (130-400); RED BLOOD COUNT 4.35 10*6/uL (4.50-5.90); RED CELL DISTRI WIDTH 13.2 % (0-14.5); WHITE BLOOD COUNT 6.5 10*3/uL (4.8-10.8)
[2022-08-04 12:10] LABS: ALKALINE PHOSPHATASE 105 U/L (46-116); BUN 13 mg/dl (9-23); CHLORIDE 102 mmol/L (98-107); CREATININE 0.96 mg/dL (0.70-1.30); POTASSIUM 3.3 mmol/L (3.4-5.1); SGPT/ALT 50 U/L (10-49); SODIUM 140 mmol/L (136-145); TOTAL PROTEIN 7.2 gm/dL (6.0-8.0)
== END | disposition home or self-care (01) ==
LOC: LAB 11:23
PROVIDERS: ATTEND Internal Medicine Hematology & Oncology
DX: C61 Malignant neoplasm of prostate (principal); M16.12 Unilateral primary osteoarthritis, left hip; Z79.818 Long term (current) use of other agents affecting estrogen receptors and estrogen levels; Z96.652 Presence of left artificial knee joint

== ENCOUNTER 2022-10-07 16:14 | Emergency (ER) | payer MEDICARE ==
[2022-10-07 16:41] LABS: BASO % 0.6 % (0.0-1.0); EOS # 0.1 10*3/uL (0.0-0.4); HEMATOCRIT 40.4 % (42.0-52.0); LYMPH # 1.5 10*3/uL (1.3-4.4); LYMPH % 28.1 % (27.0-41.0); MEAN CORPUSCULAR HGB 30.9 pg (27.0-31.0); MEAN CORPUSCULAR HGB CONC 33.9 g/dl (33.0-37.0); MEAN PLATELET VOLUME 9.3 fl (9.6-12.3); MONO # 0.5 10*3/uL (0.1-1.0); MONO % 9.9 % (3.0-9.0); NEUT # 3.2 10*3/uL (2.3-7.9); PLATELET COUNT AUTOMATED 183 10*3/uL (130-400); RED BLOOD COUNT 4.44 10*6/uL (4.50-5.90); RED CELL DISTRI WIDTH 12.8 % (0-14.5); WHITE BLOOD COUNT 5.5 10*3/uL (4.8-10.8)
[2022-10-07 16:53] LABS: INTERNATIONAL NORM RATIO 1.1 (2.0-3.5)
[2022-10-07 16:55] LABS: BILIRUBIN Negative (Negative); BLOOD Negative (Negative); CLARITY Clear (Clear); COLOR Yellow (Yellow); GLUCOSE Negative (Negative); KETONE Trace (Negative); LEUKO ESTERASE Negative (Negative); NITRITE Negative (Negative); SPECIFIC GRAVITY >= 1.030 (1.001-1.030)
[2022-10-07 16:57] LABS: ALKALINE PHOSPHATASE 101 U/L (46-116); BUN 13 mg/dl (9-23); CHLORIDE 105 mmol/L (98-107); SGPT/ALT 63 U/L (10-49); TOTAL PROTEIN 6.9 gm/dL (6.0-8.0)
[2022-10-07 17:03] LABS: BACTERIA 1+; MUCOUS 1+
== END 2022-10-07 18:27 | disposition home or self-care (01) ==
LOC: ED 16:14
PROVIDERS: Physician Assistant
DX: S00.81XA Abrasion of other part of head, initial encounter (principal); G30.9 Alzheimer's disease, unspecified; F02.80 Dementia in other diseases classified elsewhere, unspecified severity, without behavioral disturbance, psychotic disturbance, mood disturbance, and anxiety; Z88.7 Allergy status to serum and vaccine; Z90.49 Acquired absence of other specified parts of digestive tract; Z98.890 Other specified postprocedural states; F17.210 Nicotine dependence, cigarettes, uncomplicated; F10.10 Alcohol abuse, uncomplicated; W17.89XA Other fall from one level to another, initial encounter; Y93.89 Activity, other specified; Y92.410 Unspecified street and highway as the place of occurrence of the external cause; Y99.8 Other external cause status